=== PATIENT | male | born 1965 | race Two or more races ===

== ENCOUNTER 2018-12-09 12:38 | Emergency (ER) | payer MEDICARE ==
[~2018-12-09] VITALS: Ht 172.7 cm; Wt 91.0 kg
[2018-12-09 14:22] LABS: CLARITY URINE CLEAR (CLEAR); COLOR URINE YELLOW (YELLOW); KETONES URINE NEGATIVE (NEGATIVE); LEUKOCYTE ESTERASE URINE NEGATIVE (NEGATIVE); NITRITE URINE NEGATIVE (NEGATIVE); OCCULT BLOOD URINE NEGATIVE (NEGATIVE); PROTEIN URINE NEGATIVE (NEGATIVE); SPECIFIC GRAVITY URINE 1.006 (1.005-1.030); UROBILINOGEN URINE 0.2 E.U./dL (0.2-1.0)
[2018-12-09 14:31] LABS: CHLORIDE 107 mEq/L (98-107)
[2018-12-09 14:35] LABS: ETHANOL BLOOD < 10 mg/dL
[2018-12-09 14:39] LABS: BASOPHILS % 0.4 % (0.0-2.0); EOSINOPHILS % 1.4 % (0.0-5.0); HEMATOCRIT. 40.5 % (42.0-52.0); HEMOGLOBIN. 13.9 g/dL (14.0-18.0); LYMPHOCYTES % 39.2 % (20.0-50.0); MEAN CORPUSCULAR VOLUME 93.4 fL (80.0-94.0); MONOCYTES % 8.9 % (2.0-8.0); NEUTROPHILS % 50.1 % (40.0-76.0); PLATELET 220 x1000/uL (130-400); RED BLOOD CELL COUNT 4.34 mill/uL (4.7-6.1); RED CELL DISTRIBUTION WIDTH 13.1 % (11.6-14.6)
[2018-12-09 15:03] LABS: *BARBITURATES SCREEN URINE NEGATIVE (NEGATIVE)
[2018-12-09 15:04] LABS: *AMPHETAMINES SCREEN URINE NEGATIVE (NEGATIVE); *BENZODIAZEPINES SCREEN URINE NEGATIVE (NEGATIVE); *COCAINE SCREEN URINE NEGATIVE (NEGATIVE); CANNABINOID URINE SCREEN NEGATIVE (NEGATIVE); METHADONE URINE SCREEN NEGATIVE (NEGATIVE); OPIATES URINE SCREEN NEGATIVE (NEGATIVE); PHENCYCLIDINE URINE SCREEN NEGATIVE (NEGATIVE)
[2018-12-10 12:00] VITALS: BP 118/75
== END 2018-12-10 14:32 | disposition home or self-care (01) ==
LOC: ER 12:38
DX: F25.9 Schizoaffective disorder, unspecified (principal); Z59.0 Homelessness; F12.10 Cannabis abuse, uncomplicated; F17.200 Nicotine dependence, unspecified, uncomplicated
CPT/HCPCS: 36415; 80305; 80320; 81003; 99284; G0480